=== PATIENT | male | born 1980 | race Caucasian/White ===

== ENCOUNTER 2022-04-09 22:14 | Emergency (ER) | payer OTHER ==
[2022-04-09 23:14] LABS: BASOPHIL 0.4 % (0-2); EOSINOPHIL 0.1 % (0-5); LYMPHOCYTE 14.5 % (15-48); MCH 28.8 pg (25.0-31.0); MCHC 34.9 g/dL (32.0-36.0); MCV 82.5 fL (78.0-100.0); MONOCYTE 8.1 % (0-12); MPV 9.1 fL (6.0-9.5); NEUTROPHIL 76.6 % (41-80); NRBC 0; PLT 308 K/uL (150-400); RBC 5.21 M/uL (4.70-6.00); RDW 11.9 % (11.5-14.0); WBC 7.1 K/uL (4.0-10.5)
[2022-04-09 23:44] LABS: ALKALINE PHOSHATASE 84 U/L (46-116); ALT 27 U/L (16-63); AST 18 U/L (15-37); BILIRUBIN - TOTAL 0.6 mg/dL (0.2-1.0); BUN 10 mg/dL (7-18); BUN/CREAT RATIO (CALC) 11.6 RATIO; CHLORIDE 101 mmol/L (98-107); CO2 (BICARBONATE) 27 mmol/L (21-32); CREATININE 0.86 mg/dL (0.67-1.17); GLOBULIN (CALCULATION) 4.1 g/dL; GLUCOSE 109 mg/dL (74-106); POTASSIUM 3.4 mmol/L (3.5-5.1); TOTAL PROTEIN 8.1 g/dL (6.4-8.2)
[2022-04-10] MEDS ORDERED: CLONIDINE HCL0.1 MG PO (01:21)
[2022-04-10 01:45] LABS: CORONAVIRUS 2019 SARS-COV-2 NEGATIVE (NEGATIVE); INFLUENZA A NAA NEGATIVE (NEGATIVE)
== END 2022-04-10 01:24 | disposition home or self-care (01) ==
LOC: FER 22:14
PROVIDERS: Internal Medicine
DX: F11.23 Opioid dependence with withdrawal (principal); Z20.822 Contact with and (suspected) exposure to COVID-19
CPT/HCPCS: 36415; 71045; 80053; 83690; 85025; G0480; J2060; J7030; U0002